=== PATIENT | male | born 1985 | race Hispanic/Latino ===

== ENCOUNTER 2022-08-26 16:59 | Emergency (ER) | payer OTHER, SELFPAY ==
--- NOTE | 2022-08-26 17:14 | ED.EYEPROB ---
HPI - Eye Problem General Chief complaint: Eye Problems Stated complaint: Left Eye Pain Time Seen by Provider: 08/26/22 17:15 Source: patient, RN notes reviewed, old records reviewed and cardiology rn (maori) Mode of arrival: ambulatory Limitations: no limitations History of Present Illness HPI Narrative: 37-year-old male presents to the [facility] with complaints of left eye pain with redness. Patient states that he woke up yesterday morning with redness, tearing and discomfort to the right eye. Denies any trauma. 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 Onset (ago): day(s) (1) Eye Symptoms: redness, pain, foreign body sensation and discharge (Clear) Mechanism: none Treatments Prior to Arrival: other ( red eye drops ) Related Data Home Medications Medication Instructions Recorded Confirmed No Home Medications 08/26/22 08/26/22 Allergies Allergy/AdvReac Type Severity Reaction Status Date / Time No Known Allergies Allergy Verified 08/26/22 17:16 Review of Systems Review of Systems: All systems reviewed & are unremarkable except as noted in HPI and below Constitutional: Constitutional: Reports no additional constitutional complaints Eyes: Eyes: Reports as per HPI, Denies change in vision, Denies loss of vision and Denies photophobia ENT: Reports system reviewed and no additional complaints, except as documented Cardiovascular: Cardiovascular: Reports no additional cardiovascular complaints, Denies chest pain and Denies dyspnea Respiratory: Respiratory: Reports no additional respiratory complaints, Denies chest congestion, Denies cough and Denies dyspnea Gastrointestinal: Gastrointestinal: Reports no additional gastrointestinal complaints, Denies abdominal pain, Denies nausea and Denies vomiting Musculoskeletal: Musculoskeletal: Reports no additional musculoskeletal complaints Integumentary/Breasts: Skin/Breast: Reports system reviewed and no additional complaints, except as docu Neurologic: Reports system reviewed and no additional complaints, except as documented Psychiatric: Psychiatric: Reports no additional psychiatric complaints Allergic/Immunologic: Allergic/Immunologic: Reports no additional allergic/immunologic complaints PMFSH Comments At the time of my signature, I reviewed and agree with the nursing past medical, surgical, social, and family history. There is no relevant family history pertinent to the patient complaint. Exam Const: General: cooperative, healthy appearing, comfortable, no acute distress, well developed, alert and well nourished Nutritional Appearance: well nourished Orientation/consciousness: patient oriented x3 Limitations: no limitations HENMT: Head: normal to inspection Ears: hearing grossly normal bilaterally and external ears normal Face/Nose/Sinus: Normal external nose present, Normal nares present, Normal nasal mucous membranes and turbinates present and normal facial exam Face and sinus: normal facial exam Mouth: Yes Normal oral and palatal mucosa present, Yes lip normal and Yes moist mucous membranes Throat: posterior oropharynx normal and uvula midline Eyes: General: appearance normal, both eyes and all related structures Alignment and Position: alignment normal Periorbital: periorbital findings normal Conjunctivae: conjunctival abnormality left conjunctival injection and discharge (Clear) Pupils: Equal, round and reactive pupils present EOM: EOMs intact bilaterally Direct Ophthalmoscopy: no photophobia Eyes/upper lids images: 1. Concern for metallic but has a foreign body, surrounding erythema, no hyphema Neck: Neck: normal visual inspection, full ROM, no lymphadenopathy and no meningeal signs Chest: Chest palpation & inspection: normal inspection of the chest Resp: Effort & Inspection: normal respiratory effort and able to speak in complete sentences Auscultation: clear to auscultation bilaterally, no crackles, no ral
[2022-08-26 17:15] VITALS: BP 143/84; PULSE 80; RESP 14; TEMP 36.9; O2SAT 100
== END 2022-08-26 17:38 | disposition short-term general hospital (02) ==
PROVIDERS: Emergency Provider Nurse Practitioner
DX: T15.02XA Foreign body in cornea, left eye, initial encounter (principal); T14.90XA Injury, unspecified, initial encounter
CPT/HCPCS: 99202; G0463

== ENCOUNTER 2022-08-27 07:47 | Emergency (ER) | payer OTHER, SELFPAY ==
[2022-08-27 07:59] VITALS: BP 130/88; PULSE 81; RESP 16; TEMP 36.2; O2SAT 98
--- NOTE | 2022-08-27 09:42 | ED.EYEPROB ---
HPI - Eye Problem General Chief complaint: Eye Problems <Carlos Enrique Bo PA-C - Last Filed: 08/27/22 18:24> Stated complaint: left eye redness <FRANC Price Last Filed: 08/27/22 18:24> Time Seen by Provider: 08/27/22 09:40 <Carlos Enrique Bo PA-C - Last Filed: 08/27/22 18:24> Source: patient, family and police lieutenant <FRANC Price Last Filed: 08/27/22 18:24> Mode of arrival: ambulatory <FRANC Price Last Filed: 08/27/22 18:24> Limitations: no limitations <FRANC Price Last Filed: 08/27/22 18:24> History of Present Illness HPI Narrative: This is a 37-year-old male presents to the ED with chief complaint of left eye irritation x3 days. History taken with police lieutenant used. 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 He does note cleaning his grill on Tuesday and feels that his symptoms started shortly after that. He went to express care yesterday and they said that he has something in his pupil and needs to go to the ED. Denies vision changes, eye pain, itchiness. Denies headache, fevers, chills, eye discharge. No known sick contacts <FRANC Price Last Filed: 08/27/22 18:24> Related Data Allergies/adverse reactions: Allergies Allergy/AdvReac Type Severity Reaction Status Date / Time No Known Allergies Allergy Verified 08/26/22 17:16 <Carlos Enrique Bo PA-C - Last Filed: 08/27/22 18:24> Review of Systems Review of Systems: CONSTITUTIONAL: Denies fever, chills, or sweats. EYES: Endorses left eye redness and irritation. Denies visual changes, or discharge. ENT: Denies rhinorrhea, congestion, sore throat, or otalgia. SKIN: Denies rash or itching. MUSCULOSKELETAL: Denies back pain, joint pain, or myalgia. NEUROLOGIC: Denies headache, numbness, dizziness, or weakness. PSYCHIATRIC: Denies anxiety or depression. <Carlos Enrique Bo PA-C - Last Filed: 08/27/22 18:24> Exam Narrative: GENERAL: Well-appearing, well-nourished, and in no acute distress. HEAD: Normocephalic, atraumatic. EYES: Upon visual inspection there is obvious foreign body in the cornea near the left pupil. Diffuse conjunctival erythema is present in the left eye. PERRLA and EOMI. after removal of foreign body, there is a residual rust ring. Visual acuity 20/25 before and after exam Right eye exam benign. EXTREMITIES: Normal range of motion. No edema. SKIN: Warm, dry, no rash. NEURO: Alert and oriented x3. No focal deficits. PSYCH: Normal mood and affect. <Carlos Enrique Bo PA-C - Last Filed: 08/27/22 18:24> Course LEARNING OPERATIONS SPECIALIST/PA Physician Supervision For this patient encounter, I reviewed the LEARNING OPERATIONS SPECIALIST or PA documentation, treatment plan, and medical decision making; and I had [id number] time with this patient. GENERAL: Well-appearing, well-nourished, and in no acute distress. HEAD: Normocephalic, atraumatic. EYES: Left eye injected. Corneal foreign body at the 4 o'clock position near the center of the eye. PERRL. EOMI. SKIN: Warm, dry, no rash. NEURO: Alert and oriented x3. PSYCH: Normal mood and affect. Foreign body removed. There is still some residual white irritation due to prolonged time foreign body was in eye. Topical erythromycin will be prescribed. Recommend patient follow-up with an eye doctor and he has been educated on local facilities including [facility] eye care. <Chu Kelly MD - Last Filed: 08/27/22 10:13> Vital Signs Vital signs: Vital Signs Temperature 97.2 F L 08/27/22 07:59 Pulse Rate 81 08/27/22 07:59 Respiratory Rate 16 08/27/22 07:59 Blood Pressure 130/88 08/27/22 07:59 Pulse Oximetry 98 08/27/22 07:59 Oxygen Delivery Room Air 08/27/22 07:59 Temperature 97.2 F L 08/27/22 07:59 Pulse Rate 81 08/27/22 07:59 Respiratory Rate 16 08/27/22 07:59 Blood Pressure 130/88 08/27/22 07:59 Pulse Oximetry 98 02
--- NOTE | 2022-08-27 10:19 | PC.NURSE ---
Both eyes 20/20
[2022-08-27] MEDS: DACRIOSE EYE IRRIGATION 118 ML BOTTLE (10:35)
[2022-08-27] MEDS: TETRACAINE HCL 0.5% OPHTH SOLN 4 ML BTL 1 DROP (10:36)
[2022-08-27] MEDS: FLUORESCEIN SOD 1 MG/STRIP (10:36)
== END 2022-08-27 11:07 | disposition home or self-care (01) ==
LOC: ANHED 10:42
PROVIDERS: Emergency Provider Physician Assistant
DX: T15.02XA Foreign body in cornea, left eye, initial encounter (principal)
CPT/HCPCS: 65220; 99283; A9270

== ENCOUNTER 2025-01-15 18:26 | Emergency (ER) | payer OTHER, SELFPAY ==
--- NOTE | 2025-01-15 18:36 | ED.EXTPRO ---
HPI - Extremity Problem General Chief complaint: Extremity Problem,Nontraumatic Stated complaint: Left Leg Swelling Source: patient, RN notes reviewed, old records reviewed and blanket folder (Daughter Paulina) Mode of arrival: ambulatory Limitations: no limitations History of Present Illness HPI Narrative: 39-year-old male with no significant past medical history presents to the [facility] with medial left lower leg swelling. States that started over the weekend 2-3 days ago. No treatment prior to arrival. No redness. No injury. Walks with a normal gait Offered a sales leader service which he declined would prefer to use his daughter Paulina Related Data Allergies Allergy/AdvReac Type Severity Reaction Status Date / Time No Known Allergies Allergy Verified 01/15/25 18:27 Review of Systems Review of Systems: All systems reviewed & are unremarkable except as noted in HPI and below Constitutional: Constitutional: Reports no additional constitutional complaints Musculoskeletal: Musculoskeletal: Reports as per HPI Integumentary/Breasts: Skin/Breast: Reports system reviewed and no additional complaints, except as docu PMFSH Comments At the time of my signature, I reviewed and agree with the nursing past medical, surgical, social, and family history. There is no relevant family history pertinent to the patient complaint. Exam Const: General: cooperative, healthy appearing, comfortable, no acute distress, well developed, alert and well nourished Nutritional Appearance: well nourished Orientation/consciousness: patient oriented x3 Limitations: no limitations HENMT: Head: normal to inspection Eyes: General: appearance normal, both eyes and all related structures Alignment and Position: alignment normal Neck: Neck: normal visual inspection, full ROM, no lymphadenopathy and no meningeal signs Chest: Chest palpation & inspection: normal inspection of the chest Resp: Effort & Inspection: normal respiratory effort and able to speak in complete sentences Cardio: Rate: regular rate Skin: General skin exam: normal color and no rashes or lesions noted Neuro: General: patient oriented x3, gait normal, moves all extremities and no meningeal signs Cognition (Neuro): normal cognition Speech: normal speech Gait exam (Neuro): Normal gait present Extrem: General: normal to inspection, full ROM, capillary refill normal and normal gait Left lower extremity: full ROM, normal capillary refill and lower leg Details: localized swelling Location: of the proximal lower leg (Medial aspect, multiple varicose veins seen), no edema and other (Right midcalf rate measures 39 cm, left calf, affected, 40 cm); no erythema, no tenderness, no abrasions, no lacerations, no ecchymosis, no crepitus, no foreign bodies, no penetrating wound and no deformity Psych: Appearance: grossly normal and well kempt Mental Status: mental status grossly normal Speech and movement: Normal speech and movement present and Clear speech present Affect: normal affect Attitude: cooperative Course Course Level of Care: Express Care Visit Vital Signs Vital signs: Vital Signs Temperature 98.6 F 01/15/25 18:40 Pulse Rate 80 01/15/25 18:40 Respiratory Rate 16 01/15/25 18:40 Blood Pressure 147/91 H 01/15/25 18:40 Pulse Oximetry 98 01/15/25 18:40 Oxygen Delivery Room Air 01/15/25 18:40 Temperature 98.6 F 01/15/25 18:40 Pulse Rate 80 01/15/25 18:40 Respiratory Rate 16 01/15/25 18:40 Blood Pressure 147/91 H 01/15/25 18:40 Pulse Oximetry 98 01/15/25 18:40 Oxygen Delivery Room Air 01/15/25 18:40 Reviewed MDM - Extremity (Nontraumatic) MDM Narrative Medical decision making narrative: Patient sitting in exam room. Using daughter as blanket folder, professional services offered, patient did decline. Patient presents with medial aspect left proximal calf swelling, no tenderness, no erythema, no bruising, no injury. Unable to reproduce any pain with palpation. Negative Homans sign. Patient does have significant amount of varicose veins most likely inflammation from the varicose veins Patient appropriate for outpatient treatment with close follow-up, list of primary care providers given Discussed with patient and daughter signs and symptoms of proceed to the emergency room which post verbalized understanding Discharge instructions reviewed with patient, as well as provided in writing per nursing staff. The instructions also include specific and strict return/GO TO THE ER as well as f/u information. All questions have been answered, and the patient deny any further questions with discharge and discharge plan. Some parts of this dictation were generated by voice recognition software and may contain typographical and/or grammatical inaccuracies. Critical Care Time Critical Care Time Critical Care Time: No Discharge Plan Discharge Clinical Impression: Varicose veins of lower extremity with inflammation Qualifiers: Laterality: left Qualified Code(s): I83.12 - Varicose veins of left lower extremity with inflammation Patient Disposition: Home Condition: Stable Instructions: Leg Edema (ED) Additional Instructions: Purchase compression stockings and wear them daily. Take ibuprofen as needed Follow-up with primary care provider Patient Language: Kinyarwanda Prescriptions: New ibuprofen 600 mg tablet 600 mg PO TID PRN (Reason: fever or pain) Qty: 30 0RF Follow-up/Referrals: PHYSICIAN,TECHNOLOGY EDUCATION INSTRUCTOR [Primary Care Provider] - Stand Alone Forms: Work/School Release IP Time of Disposition: 18:51
[2025-01-15 18:40] VITALS: BP 147/91; PULSE 80; RESP 16; TEMP 37; O2SAT 98
== END 2025-01-15 19:00 | disposition home or self-care (01) ==
PROVIDERS: Emergency Provider Nurse Practitioner
DX: I83.12 Varicose veins of left lower extremity with inflammation (principal)
CPT/HCPCS: 99213; G0463